=== PATIENT | female | born 1960 | race Two or more races ===

== ENCOUNTER → 2021-07-09 13:00 | Outpatient (CLI) | payer BC, SELFPAY | PROVIDERS: Referring Provider Nurse Practitioner Family; Visit Provider Nurse Practitioner Family | DX: U07.1 COVID-19 (principal) | CPT/HCPCS: 87635; U0005; U0003 ==

== ENCOUNTER 2021-07-10 16:02 | Outpatient (CLI) | payer BC, SELFPAY ==
[2021-07-10] MEDS: 0.9% Saline Lock 10 ML Syringe IV (16:21)
[2021-07-10 16:24] VITALS: BP 130/84; PULSE 73; RESP 16; TEMP 37.2; O2SAT 97; BMI 29.2
[2021-07-10 17:02] VITALS: BP 136/82; PULSE 66; RESP 16; TEMP 36.7; O2SAT 98
[2021-07-10 18:02] VITALS: BP 136/81; PULSE 65; RESP 16; TEMP 36.6; O2SAT 98
== END 2021-07-10 18:08 | disposition home or self-care (01) ==
LOC: MS3OUT 16:02 → MS3 16:03
PROVIDERS: Referring Provider Nurse Practitioner Adult Health; Visit Provider Nurse Practitioner Adult Health
DX: U07.1 COVID-19 (principal)
CPT/HCPCS: J7050; M0243; A4216; Q0244